=== PATIENT | female | born 1945 | race Caucasian/White ===

== ENCOUNTER 2017-09-18 09:04 | Emergency (ER) | payer MEDICARE ==
[2017-09-18 09:55] LABS: HEMATOCRIT 42.8 % (36.0-47.0); HEMOGLOBIN 13.6 g/dl (12.0-15.5); MEAN CORPUSCULAR HEMOGLOBIN 28.4 pg (27.0-33.0); MEAN CORPUSCULAR HGB CONC 31.8 g/dl (32.0-36.5); MEAN CORPUSCULAR VOLUME 89.4 fl (80.0-96.0); PLATELET COUNT, AUTOMATED 285 10^3/uL (150-450); RED BLOOD COUNT 4.79 10^6/uL (4.00-5.40); RED CELL DISTRIBUTION WIDTH 13.1 % (11.5-14.5); WHITE BLOOD COUNT 5.5 10^3/uL (4.0-10.0)
[2017-09-18 10:10] LABS: PROTHROMBIN TIME 13.3 SECONDS (12.4-14.5)
[2017-09-18 10:11] LABS: PARTIAL THROMBOPLASTIN TIME 29.2 SECONDS (26.8-37.9)
[2017-09-18 10:14] LABS: ANION GAP 5 MEQ/L (8-16); BLOOD UREA NITROGEN 7 MG/DL (7-18); CALCIUM LEVEL 8.4 MG/DL (8.8-10.2); CARBON DIOXIDE LEVEL 29 MEQ/L (21-32); CHLORIDE LEVEL 110 MEQ/L (98-107); GLOMERULAR FILTRATION RATE > 60.0 (>45); GLUCOSE, FASTING 96 MG/DL (70-100); POTASSIUM SERUM 4.3 MEQ/L (3.5-5.1); SODIUM LEVEL 144 MEQ/L (136-145)
== END 2017-09-18 11:02 | disposition home or self-care (01) ==
LOC: M ED 09:04
DX: R60.0 Localized edema (principal); Z87.891 Personal history of nicotine dependence; Z98.84 Bariatric surgery status; Z79.82 Long term (current) use of aspirin; Z79.899 Other long term (current) drug therapy
CPT/HCPCS: 93970

== ENCOUNTER → 2019-12-10 | Outpatient (REF) | payer MEDICARE, OTHER ==
[~2019-12-10] MED LIST: ASPI81TA26 PO; LASI20TA3 PO; MULT1TAB10 PO; OMEP40CA97 PO; VITA500046 PO; VITA500T17 PO
== END ==
LOC: M LAB REF 15:40
PROVIDERS: ATTEND Dermatology
DX: D22.39 Melanocytic nevi of other parts of face (principal)

== ENCOUNTER → 2022-10-21 | Outpatient (REF) | payer MEDICARE ==
[~2022-10-21] MED LIST changes: +OMEP40CA4 PO; -OMEP40CA97 PO
== END ==
LOC: M LAB REF 11:56
PROVIDERS: ATTEND Physician Assistant
DX: J02.9 Acute pharyngitis, unspecified (principal)

== ENCOUNTER 2024-11-17 08:51 | Emergency (ER) | payer MEDICARE ==
[~2024-11-17] VITALS: Ht 167.6 cm; Wt 87.9 kg
[2024-11-17 09:49] LABS: BASO # 0.1 10^3/uL (0.0-0.2); BASO % 1.5 % (0.0-1.0); EOS # 0.3 10^3/uL (0.0-0.5); EOS % 3.6 % (0.0-3.0); LYMPH # 1.5 10^3/uL (1.5-5.0); LYMPH % 22.2 % (24.0-44.0); MONO # 0.5 10^3/uL (0.0-0.8); MONO % 7.6 % (2.0-8.0); NEUTROPHILS # 4.5 10^3/uL (1.5-8.5); NEUTROPHILS % 64.8 % (36.0-66.0); PLATELET COUNT, AUTOMATED 281 10^3/uL (150-450)
[2024-11-17 10:02] LABS: INR 1.01
[2024-11-17 10:19] LABS: CALCIUM LEVEL 8.6 MG/DL (8.3-10.6); CARBON DIOXIDE LEVEL 27.0 MMOL/L (20-31); CHLORIDE LEVEL 103.0 MMOL/L (98-107); CREATININE FOR GFR 0.7 MG/DL (0.55-1.30); GLOMERULAR FILTRATION RATE 89.0 (>39); POTASSIUM SERUM 4.6 MMOL/L (3.5-5.1); SODIUM LEVEL 138.0 MMOL/L (136-145)
[2024-11-17 10:24] VITALS: TEMP 97.5
[2024-11-17 10:42] LABS: CPK CREATINE PHOSPHOKINASE 202.0 U/L (34-145)
[2024-11-17 11:13] VITALS: BP 137/65; O2SAT 98
[2024-11-17] MEDS ORDERED: INDO50CA91 PO (11:46)
== END 2024-11-17 12:00 | disposition home or self-care (01) ==
LOC: M ED 08:51
DX: R60.0 Localized edema (principal); M17.12 Unilateral primary osteoarthritis, left knee; K21.9 Gastro-esophageal reflux disease without esophagitis; Z98.84 Bariatric surgery status; Z79.899 Other long term (current) drug therapy